=== PATIENT | female | born 2000 | race African-American/Black ===

== ENCOUNTER 2018-05-14 17:22 | Emergency (ER) | payer OTHER ==
[~2018-05-14] VITALS: Ht 160 cm; Wt 73.6 kg
[2018-05-14] MEDS ORDERED: PRENTAB45 PO (17:27)
[2018-05-14] MEDS ORDERED: NS 1,000 ML IV ONE (17:45)
[2018-05-14 18:06] LABS: BASO # 0.1 10^3/uL (0.0-0.2); BASO % 0.6 % (0.0-1.0); EOS # 0.1 10^3/uL (0.0-0.50); EOS % 0.7 % (0.0-3.0); HEMATOCRIT 38.8 % (36.0-47.0); HEMOGLOBIN 12.3 g/dl (12.0-15.5); LYMPH # 2.4 10^3/uL (1.5-6.5); LYMPH % 20.2 % (24.0-44.0); MEAN CORPUSCULAR HEMOGLOBIN 27.8 pg (27.0-33.0); MEAN CORPUSCULAR HGB CONC 31.7 g/dl (32.0-36.5); MEAN CORPUSCULAR VOLUME 87.6 fl (80.0-96.0); MONO # 0.8 10^3/uL (0.0-0.8); MONO % 7.2 % (0.0-5.0); NEUTROPHILS # 8.3 10^3/uL (1.8-7.7); PLATELET COUNT, AUTOMATED 361 10^3/uL (150-450); RED BLOOD COUNT 4.43 10^6/uL (4.00-5.40); WHITE BLOOD COUNT 11.7 10^3/uL (4.0-10.0)
[2018-05-14 18:49] LABS: BLOOD UREA NITROGEN 10 MG/DL (7-18); CALCIUM LEVEL 8.6 MG/DL (8.5-10.1); CARBON DIOXIDE LEVEL 26 MEQ/L (21-32); CHLORIDE LEVEL 107 MEQ/L (98-107); CREATININE FOR GFR 0.59 MG/DL (0.55-1.30); GLUCOSE, FASTING 71 MG/DL (70-100); HCG, SERUM QUANTITATIVE 54569 MIU/ML; POTASSIUM SERUM 3.7 MEQ/L (3.5-5.1); SODIUM LEVEL 139 MEQ/L (136-145)
--- NOTE | 2018-05-14 19:10 | REPVR ---
EXAM: US First Trimester, Transabdominal EXAM DATE/TIME: 05/14/2018 6:18 PM CLINICAL HISTORY: 17 years old, female; Pain; complicated by abdominal or pelvic pain; Generalized abdominal pain; First trimester; Gestational age or lmp: 7 weeks 2 days; ; Additional info: Cramping TECHNIQUE: Imaging protocol: Real-time transabdominal obstetrical ultrasound of the maternal pelvis and a first trimester , less than 14 weeks 0 days, with image documentation. COMPARISON: No relevant prior studies available. FINDINGS: GESTATION: Gestation: Single gestational sac in the uterus. Yolk sac measures 4 millimeters. Small princess-gestational bleed measures 1.1 x 0.4 x 0.6 centimeters. Heart rate: heart rate is 150 beats per minute. Placenta: Unremarkable. No subchorionic bleed. Amniotic fluid: Amniotic and chorionic fluid are normal for gestational age. BIOMETRY: Estimated gestational age: Gestational age based on crown-rump length of 7 weeks 1 day. This corresponds to LMP. Redford-Rump length: Redford-rump length measures 11 millimeters. MATERNAL: Uterus: Unremarkable. Cervix: Unremarkable. Right adnexa: Unremarkable. Left adnexa: Unremarkable. Intraperitoneal: No intraperitoneal free fluid. IMPRESSION: Unremarkable first trimester scan at 7 weeks 1 day using crown-rump length. Small princess-gestational bleed maybe implantation related. Continued interval followup as directed clinically suggested. Electronically signed by: Matteo Triana On 05/14/2018 19:10:32 PM
[2018-05-14 19:43] VITALS: BP 127/67
== END 2018-05-14 19:47 | disposition home or self-care (01) ==
LOC: M ED 17:22
DX: O20.8 Other hemorrhage in early pregnancy (principal); O34.81 Maternal care for other abnormalities of pelvic organs, first trimester; N83.201 Unspecified ovarian cyst, right side; Z3A.01 Less than 8 weeks gestation of pregnancy

== ENCOUNTER 2018-08-30 02:55 | Emergency (ER) | payer OTHER ==
[~2018-08-30] VITALS: Ht 160 cm; Wt 79.5 kg
[~2018-08-30 02:55] MED LIST: PRENTAB45 PO
[2018-08-30 03:33] LABS: BASO # 0.1 10^3/uL (0.0-0.2); BASO % 0.5 % (0.0-1.0); EOS # 0.1 10^3/uL (0.0-0.50); EOS % 0.6 % (0.0-3.0); HEMATOCRIT 31.5 % (36.0-47.0); HEMOGLOBIN 10.3 g/dl (12.0-15.5); LYMPH # 2.8 10^3/uL (1.5-6.5); LYMPH % 21.3 % (24.0-44.0); MEAN CORPUSCULAR HEMOGLOBIN 28.3 pg (27.0-33.0); MEAN CORPUSCULAR HGB CONC 32.7 g/dl (32.0-36.5); MEAN CORPUSCULAR VOLUME 86.5 fl (80.0-96.0); MONO % 7.7 % (0.0-5.0); NEUTROPHILS # 9.1 10^3/uL (1.8-7.7); NEUTROPHILS % 68.8 % (36.0-66.0); PLATELET COUNT, AUTOMATED 330 10^3/uL (150-450); RED BLOOD COUNT 3.64 10^6/uL (4.00-5.40); WHITE BLOOD COUNT 13.3 10^3/uL (4.0-10.0)
[2018-08-30 03:45] LABS: INR 0.98; PROTHROMBIN TIME 12.7 SECONDS (11.8-14.0)
[2018-08-30 03:48] LABS: D-DIMER QUANT 571.31 ng/ml (<500)
[2018-08-30 04:03] LABS: ALBUMIN 2.6 GM/DL (3.2-5.2); ALT/SGPT 13 U/L (12-78); BILIRUBIN,DIRECT < 0.1 MG/DL (0.0-0.2); BILIRUBIN,TOTAL 0.2 MG/DL (0.2-1.0); BLOOD UREA NITROGEN 10 MG/DL (7-18); CALCIUM LEVEL 8.5 MG/DL (8.5-10.1); CARBON DIOXIDE LEVEL 22 MEQ/L (21-32); CHLORIDE LEVEL 109 MEQ/L (98-107); CK-MB VALUE MASS < 1.0 NG/ML (<3.6); CPK CREATINE PHOSPHOKINASE 85 U/L (26-192); CREATININE FOR GFR 0.43 MG/DL (0.55-1.30); FREE T4 0.77 NG/DL (0.78-1.33); GLUCOSE, FASTING 86 MG/DL (70-100); LIPASE 87 U/L (73-393); MB/CK RELATIVE INDEX 1.18 (< OR =4); POTASSIUM SERUM 3.9 MEQ/L (3.5-5.1); SODIUM LEVEL 139 MEQ/L (136-145); TOTAL PROTEIN 6.7 GM/DL (6.4-8.2); TROPONIN I < 0.02 NG/ML (< 0.10)
--- NOTE | 2018-08-30 05:11 | REPVR ---
EXAM: US Duplex Bilateral Lower Extremity Veins EXAM DATE/TIME: 08/30/2018 4:04 AM CLINICAL HISTORY: 17 years old, female; Other: Pleuritic chest pain, 23 wks ; Additional info: pleuritic chest pain R/O dvt TECHNIQUE: Imaging protocol: Real-time duplex ultrasound of the Bilateral Lower Extremities with 2-D pozo scale, color Doppler flow and spectral waveform analysis with image documentation. Complete exam focused on the bilateral lower extremity veins. COMPARISON: No relevant prior studies available. FINDINGS: Right deep veins: Unremarkable. The common femoral, femoral, proximal profunda femoral and popliteal veins are patent without thrombus. Normal Doppler waveforms. Normal compressibility and/or augmentation response. Right superficial veins: Saphenofemoral junction is patent without thrombus. Left deep veins: Unremarkable. The common femoral, femoral, proximal profunda femoral and popliteal veins are patent without thrombus. Normal Doppler waveforms. Normal compressibility and/or augmentation response. Left superficial veins: Saphenofemoral junction is patent without thrombus. Soft tissues: Unremarkable. IMPRESSION: No acute findings. No evidence of deep vein thrombosis. Electronically signed by: Hal Ndiaye On 08/30/2018 05:11:29 AM
[2018-08-30 05:34] VITALS: BP 124/79
--- NOTE | 2018-08-30 05:45 | ECGEPIP ---
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
== END 2018-08-30 05:47 | disposition home or self-care (01) ==
LOC: MERGE 02:55 → M ED 02:55
DX: O99.89 Other specified diseases and conditions complicating pregnancy, childbirth and the puerperium (principal); R07.9 Chest pain, unspecified; Z3A.23 23 weeks gestation of pregnancy; Z79.899 Other long term (current) drug therapy

== ENCOUNTER 2018-12-03 22:44 | Outpatient (CLI) | payer OTHER ==
[~2018-12-03] VITALS: Ht 160 cm; Wt 90.6 kg
[2018-12-03 23:08] VITALS: BP 118/66
[2018-12-03] MEDS ORDERED: SERT50TA29 PO (23:30)
--- NOTE | 2018-12-04 03:04 | REPVR ---
PROCEDURE INFORMATION: Exam: US Biophysical Profile Without Non-Stress Test Exam date and time: 12/04/2018 2:21 AM Clinical history: 18 years old, female; status abnormalities: ; Other: Nonreactive nst; Single gestation; Third trimester (28 wks 0 days until delivery); TECHNIQUE: Imaging protocol: US biophysical profile without non-stress testing. COMPARISON: No relevant prior studies available. FINDINGS: Breathin/2 Gross body movements: 2/2 tone: 2/2 Qualitative amniotic fluid: 2/2 Biophysical Profile Score: 8/8 Heart rate: heart rate 128 beats per minute. Amniotic fluid: Amniotic fluid index 13.7 cm. Umbilical artery Doppler: Umbilical cord 32/12 cm/s with S/D ratio of 2.7. IMPRESSION: Biophysical profile 8 out of 8. Electronically signed by: Wolf Brown On 12/04/2018 03:04:28 AM
[2018-12-04 03:15] VITALS: BP 104/63
--- NOTE | 2018-12-04 05:20 | HPE ---
DATE OF ADMISSION: 12/03/2018 REASON FOR VISIT: Abdominal cramping and vaginal pressure. HISTORY OF PRESENT ILLNESS: Mrs. Calderon is a 18-year-old 2, para 1 who presents at 36 weeks with complaints of vaginal pressure and cramping. She presents as an unregistered patient. She obtains her care at [facility]. She reports uncomplicated course with appropriate visits. PAST MEDICAL HISTORY: History of depression. PAST SURGICAL HISTORY: None. PAST OBSTETRICAL HISTORY: She is 2, para 1. She has had one term vaginal delivery which was uncomplicated. MEDICATIONS: - Zoloft - vitamins. ALLERGIES: NO KNOWN DRUG ALLERGIES. SOCIAL HISTORY: Denies any alcohol, tobacco or drug use during . PHYSICAL EXAMINATION: Vital signs: Stable. She is afebrile. She has category one heart tracing, not reactive heart rate 130s with moderate variability, spontaneous excels. General appearance: Well appearing, no acute distress. Abdomen: Gravid, nontender. Cervical exam: The cervix was closed, long. BPP ordered 09/14 ASSESSMENT: 1. Mrs. Beckwith is 18-year-old 2, para 1 at 36 weeks with vaginal pressure and cramping, not an active labor. 2. Reassuring status. PLAN: 1. The plan is to discharge home with labor precautions, kick counts. 2. She will followup with her primary orthopedic brace maker on Tuesday for routine obstetrical (OB) appointment. ELIZABETH
== END 2018-12-04 03:17 | disposition home or self-care (01) ==
LOC: M LDO 22:44
PROVIDERS: ATTEND Obstetrics & Gynecology
DX: O26.893 Other specified pregnancy related conditions, third trimester (principal); R10.2 Pelvic and perineal pain; O47.03 False labor before 37 completed weeks of gestation, third trimester; Z3A.36 36 weeks gestation of pregnancy
CPT/HCPCS: 59025; 76815; 76819; 76820; G0378; G0463

== ENCOUNTER 2018-12-12 16:48 | Outpatient (CLI) | payer OTHER ==
[~2018-12-12] VITALS: Ht 160 cm; Wt 91.5 kg
[~2018-12-12 16:48] MED LIST changes: +SERT50TA29 PO
[2018-12-12 17:13] VITALS: BP 138/85
[2018-12-12 18:35] VITALS: BP 135/83
== END 2018-12-12 18:30 | disposition home or self-care (01) ==
LOC: M LDO 16:48
PROVIDERS: ATTEND Obstetrics & Gynecology
DX: O36.8130 Decreased fetal movements, third trimester, not applicable or unspecified (principal); Z3A.37 37 weeks gestation of pregnancy
CPT/HCPCS: 59025; 76815; G0378; G0463

== ENCOUNTER 2018-12-15 04:37 | Outpatient (CLI) | payer OTHER ==
[~2018-12-15] VITALS: Ht 160 cm; Wt 91.7 kg
[2018-12-15 04:59] VITALS: BP 145/93
[2018-12-15 05:02] VITALS: BP 118/76
[2018-12-15 07:15] VITALS: BP 120/68
== END 2018-12-15 08:08 | disposition home or self-care (01) ==
LOC: M LDO 04:37
PROVIDERS: ATTEND Specialist
DX: O47.1 False labor at or after 37 completed weeks of gestation (principal); Z3A.37 37 weeks gestation of pregnancy
CPT/HCPCS: 59025; G0378; G0463

== ENCOUNTER 2018-12-16 06:36 | Inpatient (IN) | payer OTHER ==
[~2018-12-16] VITALS: Ht 160 cm; Wt 91.3 kg
[2018-12-16] VITALS (18 sets, daily range): BP systolic 119–162; BP diastolic 64–102
[2018-12-16] MEDS ORDERED: LACTATED RINGER'S 1000 ML IV STA (07:14)
[2018-12-16] MEDS ORDERED: LR 1,000 ML IV SCH (07:14)
[2018-12-16] MEDS ORDERED: PROMETHAZINE INJ 25 MG/ML VIAL (J2550) IV ONE (07:45)
--- NOTE | 2018-12-16 07:45 | HPEPDOC ---
Obstetrical History & Physical General Date of Admission Dec 16, 2018 at 07:17 History of Present Illness Chief Complaint: Contractions, term Information Provided By: Patient Age: 18 : 1 Term: 1 Pre-term: 0 Abortions: 0 Livin Care Care: Good Care Dating Final EDC: Dec 30, 2018 Final EDC by: 1st trimester (US) EGA at Admission: 38 Antepartum Course Height (inches): 63 Pre- weight (lbs.): 140 Admission Weight (lbs.): 201 Past Medical History Past Obstetrical History : Past Obstetrical History: Primgravida (2018) Type of Delivery: Spontaneous Vaginal Del. Sex of Infant: Male (7#6) Complications: Yes ( HTN and depression) TELEPHONER History: No pertinent history Past Medical History Surgical History: Denies/None Family History Significant Family History: No pertinent family hx Social History Marital Status: Family situation: Spouse/partner home Psychosocial History: Depression (. started zoloft this ) * Smoker: non-smoker Alcohol: Denies Drugs: denies Allergies Coded Allergies: No Known Drug Allergies (Verified Allergy, Unknown, 05/14/18) Medications Scheduled Vit No.129/Iron/Folic ( One Daily Tablet) 1 Tab Tab, 1 TAB PO DAILY Sertraline HCl (Sertraline HCl) 50 Mg Tablet, 50 MG PO DAILY Physical Examination Physical Examination GENERAL: Alert and oriented times three. Appears uncomfortable BREAST: . ABDOMEN: Gravid and non-tender to touch. FETUS: Is vertex (VTX) by sterile vaginal examination (SVE), fetus is vertex (VTX) by Rafita. HEART RATE: Regular rate and rhythm. LUNGS: Clear to auscultation (CTA). EXTREMITIES: No edema. No clonus. Deep tendon reflexes (DTRs) + 2. Vital Signs/I&O Vital Signs Date Time Temp Pulse Resp B/P (MAP) Pulse Ox O2 Delivery O2 Flow Rate FiO2 12/16/18 06:56 98.2 12/16/18 06:49 83 157/91 (113) Pertinent Laboratoy Data Blood Type: O+ RBC Antibody Screen: Negative HIV: Unknown (reort not on chart) Hepatitis B: Negative Rapid Plasma Reagin: Nonreactive Rubella: Immune Chlamydia/Gonorrhea: Negative Group B Streptococcus: Negative Glucose Tolerance Test: 67 Steroid Therapy Steroid Therapy: No Vaginal Examination Dilation: 7 cm Effacement: 100% Station: -1 Cervical Consistency: Soft Cervical Position: Middle Presentation: Cephalic presentation Assessment Heart Rate (FHR): 120 Variability: Moderate Accelerations: Positive Decelerations: None Tocometer Contractions: Yes Frequency: regular, every 2-5 min. Duration: greater than 60 seconds Strength: palpated as strong Assessment/Plan Assessment Radu is a 18-year-old (G)2 para (P)1-0-0-1 at 38+0 weeks by 7-week ultrasound. Presents to Labor and Delivery (L&D) with complaints of contractions. Pt of [facility]. Reports UC on and off for days, stronger since 0400. Denies LOF or bleeding. Fetus is active. 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 Diet: clear. Request HIV and Hep B from [facility]. If unavailable will draw here Group B Streptococcus (GBS) negative. Labs and intravenous (IV) per unit protocol. Counseled on Pitocin and induction of labor (IOL). Lactated Ringers (LR): Bolus 500 mL, then at 125 mL/hr. Plans to labor ad ulysses Anticipate normal spontaneous delivery (). C-S as appropriate. Jo-Ann Malcolm CNM Dec 16, 2018 07:45
[2018-12-16 08:11] LABS: HEMATOCRIT 32.8 % (36.0-47.0); HEMOGLOBIN 9.7 g/dl (12.0-15.5); MEAN CORPUSCULAR HEMOGLOBIN 24.4 pg (27.0-33.0); MEAN CORPUSCULAR HGB CONC 29.6 g/dl (32.0-36.5); MEAN CORPUSCULAR VOLUME 82.4 fl (80.0-96.0); PLATELET COUNT, AUTOMATED 353 10^3/uL (150-450); RED BLOOD COUNT 3.98 10^6/uL (4.00-5.40); WHITE BLOOD COUNT 9.7 10^3/uL (4.0-10.0)
[2018-12-16 08:38] LABS: ALT/SGPT 21 U/L (12-78); BILIRUBIN,TOTAL 0.3 MG/DL (0.2-1.0); CREATININE FOR GFR 0.59 MG/DL (0.55-1.30); LDH LACTATE DEHYDROGENASE 316 U/L (84-246); URIC ACID 3.4 MG/DL (2.6-6.0)
[2018-12-16] MEDS ORDERED: BUTORPHANOL 2 MG/ML INJ (J0595) IV ONE (09:00)
[2018-12-16] MEDS ORDERED: OXYTOCIN 30 UNITS IN 0.9% NaCl 500ML IV BAG (J2590) As Ordered ONE (09:49)
[2018-12-16] MEDS ORDERED: OXYTOCIN DRIP 30 UNITS in IV 1 EA IV SCH (10:59)
[2018-12-16] MEDS ORDERED: IBUPROFEN 600 MG TAB PO PRN (11:00)
[2018-12-16] MEDS ORDERED: LIDOCAINE 1% MDV 20ML VIAL INFIL ONE (11:00)
[2018-12-16] MEDS ORDERED: miSOPROStol 200 MCG TAB (S0191) PR ONE (11:00)
[2018-12-16] MEDS ORDERED: MOM 30ML SUSPENSION UDC PO PRN (11:00)
[2018-12-16] MEDS ORDERED: DOCUSATE SODIUM 100 MG CAP PO PRN (11:00)
[2018-12-16] MEDS ORDERED: ANUSOL HC CREAM 30GM TOP PRN (11:00)
[2018-12-16] MEDS ORDERED: ACETAMINOPHEN TAB 650MG DOSE (2X325MG) PO PRN (11:00)
[2018-12-16] MEDS ORDERED: MEASLES,MUMPS,RUBELLA VACCINE INJ (MMR-II) (90707) SC SCH (11:00)
[2018-12-16] MEDS ORDERED: RHOGAM 300 MCG (1500 IU) INJ (J2790) IM SCH (11:00)
[2018-12-16] MEDS ORDERED: METHYLERGONOVINE MALEATE 0.2 MG TAB PO PRN (11:00)
[2018-12-16] MEDS ORDERED: DIBUCAINE 1% OINTMENT 30GM TOP PRN (11:00)
--- NOTE | 2018-12-16 11:09 | DNPDOC ---
[facility] Delivery Note Delivery Note DATE OF DELIVERY: 12/16/18 PREDELIVERY DIAGNOSIS: 38-0/7 weeks' gestation and labor. POST DELIVERY DIAGNOSIS: Delivered. PROCEDURE: Spontaneous vaginal delivery. PROVIDER: Jo-Ann Malcolm CNM ANESTHESIA: None. ESTIMATED BLOOD LOSS: 400 mL. FINDINGS: 6 pound 14 ounce, 3130gm male infant, Score 9/9, no nuchal cord. DELIVERY SUMMARY: Patient is a 18-year-old 2 now para 2-0-0-2 who was admitted to labor and delivery for active labor. She coped with her labor physiologically. AROM clear fluid 0951. FD 1010. Viable male child delivered MAIKEL, restituted to LOP @ 1026. Spontaneous respirations, transitioned on maternal abdomen. Cord doubly clamped and cut by FOB under my direction once pulsations ceased. Apgars 9/9. Placenta reyes, intact with 3v cord @ 1031. Fundus firmed with massage and IV pitocin bolus. However consistent bleeding persisted. Misoprostol 1000mcg AL given with excellent control of bleeding. 1st degree perineal laceration repaired after infiltration with 3-0 vicryl rapide in one layer. EBL 400ml. Sponge, sharp and instrument count correct. Jo-Ann Malcolm CNM Dec 16, 2018 11:09
[2018-12-16] MEDS: IBUPROFEN 800 MG TAB PO PRN ×2 (12:43→19:56)
[2018-12-16] MEDS: ACETAMINOPHEN 500 MG TAB PO PRN (16:24)
[2018-12-17] MEDS: ACETAMINOPHEN 500 MG TAB PO PRN ×2 (02:44→19:31)
[2018-12-17 06:00] VITALS: BP 108/57
[2018-12-17] MEDS: PRENATAL VITAMINS CHEWABLE TABLET PO SCH (09:28)
[2018-12-17] MEDS: IBUPROFEN 800 MG TAB PO PRN ×2 (12:08→21:37)
[2018-12-17 18:00] VITALS: BP 121/77
[2018-12-18] MEDS: ACETAMINOPHEN 500 MG TAB PO PRN (05:06)
[2018-12-18 05:59] VITALS: BP 124/76
[2018-12-18] MEDS ORDERED: ACET1TAB55 PO (07:22)
[2018-12-18] MEDS ORDERED: IBUP80TA PO (07:22)
[2018-12-18] MEDS: PRENATAL VITAMINS CHEWABLE TABLET PO SCH (07:25)
[2018-12-18] MEDS: IBUPROFEN 800 MG TAB PO PRN (07:34)
== END 2018-12-18 08:30 | disposition home or self-care (01) | DRG 807 ==
LOC: M LDO 06:36 → M LDI 07:17 → M OBS 13:49
PROVIDERS: ADMIT Advanced Practice Midwife; ATTEND Advanced Practice Midwife
PROC: 10E0XZZ Delivery of Products of Conception, External Approach (ICD-10-PCS; principal; 2018-12-16)
DX: O70.0 First degree perineal laceration during delivery (principal); Z37.0 Single live birth; Z3A.38 38 weeks gestation of pregnancy

== ENCOUNTER → 2019-06-27 | Outpatient (CLI) | payer OTHER ==
[~2019-06-27] MED LIST changes: +ACET1TAB55 PO; +IBUP80TA PO
--- NOTE | 2019-06-27 17:10 | REP ---
Clinical: Pain with recent fall. Technique: AP, lateral, bilateral oblique and sunrise views right knee . Findings: The osseous structures and joint spaces are intact and normal. There is no evidence for acute fracture or dislocation. No joint effusion is appreciated. Surrounding soft tissues are unremarkable. No subcutaneous emphysema or radiodense foreign body. Impression: No acute fracture or dislocation. Electronically Signed by Hal Estes MD 06/27/2019 05:02 P
== END ==
LOC: M LRY 16:40
PROVIDERS: ATTEND Physician Assistant
DX: S89.91XA Unspecified injury of right lower leg, initial encounter (principal); W19.XXXA Unspecified fall, initial encounter; Y92.9 Unspecified place or not applicable
CPT/HCPCS: 73564; G0463